=== PATIENT | female | born 1950 | race Caucasian/White ===

== ENCOUNTER → 2020-03-15 | Outpatient (CLI) | payer OTHER, MEDICARE ==
[~2020-03-15] MED LIST: APAP500 OR; CELEXA40 MG OR; CENTRUM TABLET1 TAB OR; COUMADIN 2 MG TA2 M1; COUMADIN 5 MG TA5 M1; FISHOIL; HYDROCODON-ACE1 EAC7 PO; IRON325; LEVOTHYROXINE 0.1 MG PO; LIPITOR40 MG PO; LORTAB 7.5/5001 TA3; MULTIVITAMINS1 EAC7 PO; SYNTHROID100 MCG OR; TRAMADOL 50 MG50 MG PO; TYLENOL325 MG PO; VITAMIN D1000 UNI1 OR; VITAMINC500 PO; XARELTO10 MG PO; ZETIA10 MG PO; ZOCOR80 MG OR
== END ==
LOC: SJCVC 12:55
PROVIDERS: ATTEND Internal Medicine Cardiovascular Disease
DX: R94.31 Abnormal electrocardiogram [ECG] [EKG] (principal); R93.1 Abnormal findings on diagnostic imaging of heart and coronary circulation; E78.00 Pure hypercholesterolemia, unspecified; R20.0 Anesthesia of skin; Z88.5 Allergy status to narcotic agent; Z88.0 Allergy status to penicillin; Z86.010 Personal history of colon polyps; Z79.82 Long term (current) use of aspirin; Z79.899 Other long term (current) drug therapy; Z87.891 Personal history of nicotine dependence; Z82.49 Family history of ischemic heart disease and other diseases of the circulatory system